=== PATIENT | female | born 1980 | race Caucasian/White ===

== ENCOUNTER 2019-10-29 14:52 | Emergency (ER) | payer OTHER, SELFPAY ==
[2019-10-29 14:59] VITALS: BP 192/84; PULSE 138; RESP 24; TEMP 37; O2SAT 99
--- NOTE | 2019-10-29 15:21 | DI.US.S_ITS ---
PROCEDURE: US PERIPH VENOUS LOW EXTREM RT INDICATIONS: rt lower leg pain TECHNIQUE: Real-time imaging, as well as color and pulse Doppler interrogation, were performed of the lower extremity deep veins from the inguinal ligament to the popliteal fossa. COMPARISON: None. FINDINGS: The common femoral, femoral and popliteal veins are normally compressible, and free of intraluminal thrombus. Color and pulse Doppler demonstrate normal phasic intraluminal flow. There is normal augmentation response to distal compression maneuver. IMPRESSION: 1. No evidence of deep venous thrombosis in the right lower extremity. Dictated by: David Kim M.D. on 10/29/2019 at 16:10 Approved by: David Kim M.D. on 10/29/2019 at 16:10
[2019-10-29 15:54] VITALS: BP 126/79
[2019-10-29 15:55] VITALS: PULSE 110; O2SAT 94
--- NOTE | 2019-10-29 15:58 | ED.LOWEXIN ---
HPI - Extremity Injury (Lower) <LEONORA Mejía - Last Filed: 10/29/19 16:38> General Chief Complaint: Extremity Injury, Lower Stated Complaint: thinks has a DVT Time Seen by Provider: 10/29/19 15:06 Source: patient Mode of arrival: Ambulatory Limitations: no limitations History of Present Illness HPI Narrative: This is a 39-year-old female, nonsmoker, who has history of hypothyroidism and takes control pills presents to ED with her spouse with chief complain of left calf pain for last 6 days. Patient reports she cleaned bathtub on Wednesday and has been having charley horse like discomfort in upper right calf. She denies fever, chills, nausea or vomiting, chest pain, redness or warmth to affected leg. She feels occasional short of breath but she is not sure if this is real or my head is playing a game. She reports she is concerned for blood clots in her leg. She denies history of blood clots, recent surgery or prolonged bed rest but states had driven from [place] to [facility] about 4 months ago. Patient reports she is waiting for gastric bypass surgery. Related Data Allergies Allergy/AdvReac Type Severity Reaction Status Date / Time acetaminophen [From Vicodin] Allergy Verified 10/29/19 15:02 hydrocodone [From Vicodin] Allergy Verified 10/29/19 15:02 Review of Systems <LEONORA Mejía - Last Filed: 10/29/19 16:38> Review of Systems Narrative: General: Denies fever, chills, fatigue, malaise, sweats. HEENT: Denies sinus pain, ear pain, sore throat, difficulty swallowing, dizziness. Respiratory: Denies dyspnea, (+) occasional shortness of breath, cough, wheezing, hemoptysis, sputum. Cardiovascular: Denies chest pain, palpitations, orthopnea, edema. Gastrointestinal: Denies nausea, vomiting, abdominal pain, diarrhea, constipation, melena. : Denies dysuria, frequency, incontinence, hematuria, urinary retention. Musculoskeletal: See HPI Skin: Denies rash, skin lesions, or other. Neurologic: Denies weakness, headache, numbness, change in speech, confusion, seizures, incoordination. Psychiatric: No concerning psychosocial issues. 12-point review of systems is negative except for those stated above. Patient History <Jesús Coley EPIDEMIOLOGY INTERN - Last Filed: 10/29/19 16:38> Social History (Updated 10/29/19 @ 16:03 by LEONORA Mejía) Smoking Status: Never smoker alcohol intake: never substance use type: does not use Smoking Status: Never smoker Exam <Jesús CumminsLEONORA Espana - Last Filed: 10/29/19 16:38> Narrative Exam Narrative: GEN: Alert, oriented x 3, well appearing and obese patient in no acute distress. Head: Normal cephalic, atraumatic. No scalp or temporal tenderness, palpable mass or rash. EYES: Pupils are equal, round, and reactive to light and accommodation. Extraocular muscles are intact bilaterally. There is no subconjunctival hemorrhage, exudate and sclera non-icteric. ENT: Hearing grossly intact. Nose without bleeding, purulent discharge or deviation. Airway patent. Neck: Trachea in midline. No JVD, non-tender without lymphadenopathy. No masses or thyroid megaly. Supple, non-tender and no meningeal signs. CARDIAC: Normal regular rate and rhythm without murmurs, gallops, or rubs. No chest wall tenderness. No peripheral edema, cyanosis or pallor. Capillary refill is less than 2 seconds. RESPIRATORY: Lungs are clear to auscultate bilaterally. No cough, wheezes, rales, or rhonchi. No stridor, respiratory distress, increase work of breathing, or accessary muscle used. ABD: Abdomen soft, nontender and non-distended. No guarding or rebound tenderness to palpate. Bowel sounds are normal in all 4 quadrants. There is no palpable masses or organomegaly. SKIN: Warm, dry, normal color for patient. No erythema, lesions or rash over visible areas. BACK: Nontender without deformity or crepitance. No flank tenderness. NEUROLOGICAL: Alert and oriented to place, time and person. Sensation and motor function intact bilaterally. No facial droops, dysphasia. PSYCHIATRIC: Good judgement and reason, without hallucinations, abnormal affect or abnormal behaviors during the examination. Patient is not suicidal. Initial Vital Signs Initial Vital Signs: Vital Signs Temperature 98.6 F 10/29/19 14:59 Pulse Rate 138 H 10/29/19 14:59 Respiratory Rate 24 10/29/19 14:59 Blood Pressure 192/84 H 10/29/19 14:59 Pulse Oximetry 99 10/29/19 14:59 Extrem Right lower extremity: lower leg Details: normal to inspection, tenderness Location: of the posterior calf and no edema; no erythema, no localized swelling, no deformity and no unusual warmth and foot Details: normal capillary refill, toes with normal ROM, no edema and vascular exam Details: dorsalis pedis pulse present <DO Rodo Garces Last Filed: 10/30/19 08:23> Initial Vital Signs Initial Vital Signs: Vital Signs Temperature 98.6 F 10/29/19 14:59 Pulse Rate 138 H 10/29/19 14:59 Respiratory Rate 24 10/29/19 14:59 Blood Pressure 192/84 H 10/29/19 14:59 Pulse Oximetry 99 10/29/19 14:59 Scores <LEONORA Mejía - Last Filed: 10/29/19 16:38> GCS Mchenry coma scale eye opening: Spontaneous Mchenry coma scale verbal response: Orientated Mchenry coma scale motor response: Obey commands Mchenry coma scale total score: 15 Wells' Criteria for DVT Active Cancer (Treatment within 6 months): No Bedridden recently >3 days or major surgery within 4 weeks: No Calf Swelling >3cm compared to other leg: No Collateral (nonvericose) superficial veins present: Yes Entire leg swollen: No Localized tenderness along the deep vein system: Yes Pitting edema, confined to symtomatic leg: No Paralysis, paresis, or recent plaster immobilization of ext: No Previously documented DVT: No Alternative dx to DVT as likely or more likely: Yes Wells' criteria for DVT: 0 Course <LEONORA Mejía - Last Filed: 10/29/19 16:38> Orders Ordered: ED Orders 10/29/19 15:21 periph venous low extrem rt Stat Vital Signs Vital signs: Vital Signs - 8 hr 10/29/19 14:59 10/29/19 15:54 10/29/19 15:55 Temperature 98.6 F Pulse Rate 138 H 110 H Respiratory Rate 24 Blood Pressure 192/84 H 126/79 Pulse Oximetry 99 94 10/29/19 16:22 Temperature Pulse Rate 99 H Respiratory Rate Blood Pressure 126/79 Pulse Oximetry <Valerie Mckeon DO - Last Filed: 10/30/19 08:23> Orders Ordered: ED Orders 10/29/19 15:21 US periph venous low extrem rt Stat Vital Signs Vital signs: Vital Signs - 8 hr 10/29/19 14:59 10/29/19 15:54 10/29/19 15:55 Temperature 98.6 F Pulse Rate 138 H 110 H Respiratory Rate 24 Blood Pressure 192/84 H 126/79 Pulse Oximetry 99 94 10/29/19 16:22 Temperature Pulse Rate 99 H Respiratory Rate Blood Pressure 126/79 Pulse Oximetry MDM - Extremity Injury (Lower) <LEONORA Mejía - Last Filed: 10/29/19 16:38> Differential Diagnosis Differential diagnosis: Likely other (Cellulitis, DVT, calf strain) Medical Records Attestation: I reviewed the patient's medical records. Imaging Data XR-Hand RT: Radiologist's Impression: [address] [address] Ultrasound Report Signed Patient: Francisca Mims [facility]#: [id number] : 1980Acct:[id number] Age/Sex: 39 / FDate of Service: 10/29/19 Loc: ED Accession Number: [id number] Procedure: US periph venous low extrem rt Ordering Provider: Jesús Coley PROCEDURE: US PERIPH VENOUS LOW EXTREM RT INDICATIONS: rt lower leg pain TECHNIQUE: Real-time imaging, as well as color and pulse Doppler interrogation, were performed of the lower extremity deep veins from the inguinal ligament to the popliteal fossa. COMPARISON: None. FINDINGS: The common femoral, femoral and popliteal veins are normally compressible, and free of intraluminal thrombus. Color and pulse Doppler demonstrate normal phasic intraluminal flow. There is normal augmentation response to distal compression maneuver. IMPRESSION: 1. No evidence of deep venous thrombosis in the right lower extremity. Dictated by: David Kim M.D. on 10/29/2019 at 16:10 Approved by: David Kim M.D. on 10/29/2019 at 16:10 [facility] Narrative Medical decision making narrative: This is a 39-year-old female who presents to with localized right calf pain for last 6 days and concerned for DVT. Wells DVT score is 0. She is currently taking control pill and had prolonged driving from [place] to [place] about 4 months ago. Physical exam is not consistent with cellulitis. Ultrasound for DVT test was negative. Calf pain is likely from calf strain since this occurred after cleaning bathtub and she also she has discomfort with this incident. Distal pulse, sensation, mobility is intact. Patient advised to take [id number] Tylenol and or Motrin with Biofreeze that she uses for other areas with musculoskeletal pain. Return precautions were discussed with patient and patient's blood pressure and heart rate have improved significantly as normotensive with heart rate in 99 beats per minute before discharged to home. Discharge Plan Departure Patient Disposition: Home Clinical Impression: Strain of right calf muscle Discharge Date/Time: 10/29/19 16:52 Instructions: DI for Leg Pain Activity Restrictions/Additional Instructions: You have been diagnosed with [right calf pain likely from strain. No indications for DVT per ultrasound test today.]. What to do: *Take your medications as directed. You can take [id number] Tylenol and or Motrin as needed for discomfort. You can also use Biofreeze that you have on affected site for discomfort. *Follow up with your primary care provider in 2-3 days, call for an appointment. Let them know you were seen in the ED and that we asked you to be seen in follow up. *Return to ED if you have any new, worsening, or concerning symptoms, such as [chest pain, breathing difficulty, palpitations, feel like fainting, worsening pain, swelling/redness/warmth spreading to leg or any acute concerns]. Referrals: [facility] Resources [Outside] <Valerei Mckeon DO - Last Filed: 10/30/19 08:23> [facility] Attending Ernestine Attestation: I was immediately available in the department for consultation. Documentation has been reviewed. I agree with assessment and plan.
[2019-10-29 16:22] VITALS: BP 126/79; PULSE 99
== END 2019-10-29 16:52 | disposition home or self-care (01) ==
PROVIDERS: Emergency Provider Nurse Practitioner Family
DX: S86.911A Strain of unspecified muscle(s) and tendon(s) at lower leg level, right leg, initial encounter (principal); R06.02 Shortness of breath; E03.9 Hypothyroidism, unspecified
CPT/HCPCS: 93971; 99283